=== PATIENT | male | born 1990 | race Caucasian/White ===

== ENCOUNTER 2017-04-24 09:18 | Emergency (ER) | payer OTHER ==
[~2017-04-24] VITALS: Ht 177.8 cm; Wt 85.5 kg
[2017-04-24 09:24] VITALS: BP 138/74
--- NOTE | 2017-04-24 18:29 | ECGEPIP ---
Stationary ECG Study [facility] - ED Test Date: 2017-04-24 Pat Name: BOSTON DUNNE Department: Room: - Gender: M Engineering Aid: guilherme : 1990 Requested By: Reddy Sanabria Order Number: [id number] Reading MD: Dimitri Phillip Measurements Intervals [place] Rate: 65 P: 40 [place]: 116 QRS: 65 QRSD: 108 T: 56 QT: 387 QTc: 403 Interpretive Statements SINUS RHYTHM WITH SINUS ARRHYTHMIA WITH SHORT [place] INTERVAL NONSPECIFIC ST & T-WAVE ABNORMALITY NO PRIORS FOR COMPARISON Electronically Signed On 04-24-2017 18:29:01 EST by Dimitri Phillip
== END 2017-04-24 10:47 | disposition home or self-care (01) ==
LOC: M ED 09:18
DX: R55 Syncope and collapse (principal); Z91.010 Allergy to peanuts